=== PATIENT | female | born 1990 | race Caucasian/White ===

== ENCOUNTER → 2017-11-03 | Outpatient (CLI) | payer OTHER ==
[2017-11-03 18:19] LABS: BASO % 0.4 % (0.0-1.0); EOS # 0.1 10^3/uL (0.0-0.50); EOS % 2.7 % (0.0-3.0); IMMATURE GRANULOCYTE % 0.2 % (0-0); LYMPH # 2.4 10^3/uL (1.5-6.5); LYMPH % 45.3 % (24.0-44.0); MEAN CORPUSCULAR HEMOGLOBIN 28.5 pg (27.0-33.0); MEAN CORPUSCULAR HGB CONC 34.3 g/dl (32.0-36.5); MEAN CORPUSCULAR VOLUME 82.9 fl (80.0-96.0); MONO # 0.3 10^3/uL (0.0-0.8); MONO % 6.1 % (0.0-5.0); NEUTROPHILS # 2.4 10^3/uL (1.8-7.7); NEUTROPHILS % 45.3 % (36.0-66.0); PLATELET COUNT, AUTOMATED 226 10^3/uL (150-450); RED CELL DISTRIBUTION WIDTH 13.4 % (11.5-14.5); WHITE BLOOD COUNT 5.3 10^3/uL (4.0-10.0)
[2017-11-03 18:38] LABS: FREE T4 0.96 NG/DL (0.76-1.46)
== END ==
LOC: M WUC 15:36
PROVIDERS: ATTEND Nurse Practitioner Women's Health
DX: N76.1 Subacute and chronic vaginitis (principal)

== ENCOUNTER 2017-12-27 16:23 | Emergency (ER) | payer OTHER ==
[2017-12-27 18:28] LABS: BASO % 0.1 % (0.0-1.0); EOS % 0.3 % (0.0-3.0); HEMATOCRIT 37.5 % (36.0-47.0); HEMOGLOBIN 13.1 g/dl (12.0-16.0); IMMATURE GRANULOCYTE % 0.3 % (0-0); LYMPH # 0.5 10^3/uL (1.5-6.5); LYMPH % 7.3 % (24.0-44.0); MEAN CORPUSCULAR HEMOGLOBIN 28.7 pg (27.0-33.0); MEAN CORPUSCULAR HGB CONC 34.9 g/dl (32.0-36.5); MEAN CORPUSCULAR VOLUME 82.2 fl (80.0-96.0); MONO # 0.3 10^3/uL (0.0-0.8); NEUTROPHILS # 6.4 10^3/uL (1.8-7.7); PLATELET COUNT, AUTOMATED 266 10^3/uL (150-450); RED BLOOD COUNT 4.56 10^6/uL (4.00-5.40); RED CELL DISTRIBUTION WIDTH 13.4 % (11.5-14.5); WHITE BLOOD COUNT 7.3 10^3/uL (4.0-10.0)
[2017-12-27 18:36] LABS: KETONE, URINE AUTO RFX 1+ mg/dL (NEGATIVE); LEUKOCYTE ESTERASE UR AUTO RFX NEGATIVE (NEGATIVE); MUCUS, URINE RFX SMALL (NEGATIVE); NITRITE, URINE AUTO RFX NEGATIVE (NEGATIVE); RBC, URINE AUTO RFX 1 /HPF (0-3); SPECIFIC GRAVITY UR AUTO RFX 1.018 (1.002-1.035); SQUAM EPITHELIAL CELL UR AURFX 1 /HPF (0-6); WBC, URINE AUTO RFX 0 /HPF (0-3)
[2017-12-27 19:15] LABS: HCG, SERUM QUANTITATIVE 10594 MIU/ML
== END 2017-12-27 20:09 | disposition home or self-care (01) ==
LOC: M ED 16:23
DX: O99.89 Other specified diseases and conditions complicating pregnancy, childbirth and the puerperium (principal); R10.2 Pelvic and perineal pain; Z3A.01 Less than 8 weeks gestation of pregnancy
CPT/HCPCS: 76801

== ENCOUNTER → 2018-01-25 | Outpatient (CLI) | payer OTHER ==
[2018-01-25 17:48] LABS: BASO % 0.4 % (0.0-1.0); EOS # 0.2 10^3/uL (0.0-0.50); EOS % 1.8 % (0.0-3.0); HEMATOCRIT 33.6 % (36.0-47.0); HEMOGLOBIN 11.5 g/dl (12.0-16.0); IMMATURE GRANULOCYTE % 0.1 % (0-3.0); LYMPH # 2.9 10^3/uL (1.5-6.5); LYMPH % 35.3 % (24.0-44.0); MEAN CORPUSCULAR HEMOGLOBIN 28.1 pg (27.0-33.0); MEAN CORPUSCULAR HGB CONC 34.2 g/dl (32.0-36.5); MEAN CORPUSCULAR VOLUME 82.2 fl (80.0-96.0); MONO # 0.5 10^3/uL (0.0-0.8); MONO % 5.5 % (0.0-5.0); NEUTROPHILS # 4.6 10^3/uL (1.8-7.7); NEUTROPHILS % 56.9 % (36.0-66.0); PLATELET COUNT, AUTOMATED 268 10^3/uL (150-450); RED BLOOD COUNT 4.09 10^6/uL (4.00-5.40); RED CELL DISTRIBUTION WIDTH 13.9 % (11.5-14.5); WHITE BLOOD COUNT 8.1 10^3/uL (4.0-10.0)
[2018-01-25 20:04] LABS: CHLAMYDIA DNA AMPLIFICATION NEGATIVE (NEGATIVE); GC DNA AMPLIFICATION NEGATIVE (NEGATIVE)
[2018-01-28 11:58] LABS: RUBELLA IgG QUALITATIVE IMMUNE (IMMUNE)
[2018-01-28 12:08] LABS: HBsAg Prenatal NEGATIVE (NEGATIVE)
[2018-01-28 12:36] LABS: HIV 1&2 SCREEN CENTAUR NEGATIVE (NEGATIVE)
== END ==
LOC: M SMT 15:13
DX: Z36.9 Encounter for antenatal screening, unspecified (principal)
CPT/HCPCS: 86762

== ENCOUNTER → 2018-03-29 | Outpatient (CLI) | payer OTHER | LOC: M RAD 13:40 | DX: Z34.82 Encounter for supervision of other normal pregnancy, second trimester (principal); Z36.89 Encounter for other specified antenatal screening; Z3A.19 19 weeks gestation of pregnancy | CPT/HCPCS: 76811 ==

== ENCOUNTER → 2018-06-04 | Outpatient (CLI) | payer OTHER ==
[2018-06-04 13:26] LABS: BASO % 0.4 % (0.0-1.0); EOS # 0.1 10^3/uL (0.0-0.50); EOS % 1.4 % (0.0-3.0); HEMATOCRIT 33.3 % (36.0-47.0); HEMOGLOBIN 11.6 g/dl (12.0-15.5); IMMATURE GRANULOCYTE % 0.6 % (0-3.0); LYMPH # 1.9 10^3/uL (1.5-6.5); MEAN CORPUSCULAR HEMOGLOBIN 28.8 pg (27.0-33.0); MEAN CORPUSCULAR HGB CONC 34.8 g/dl (32.0-36.5); MEAN CORPUSCULAR VOLUME 82.6 fl (80.0-96.0); MONO # 0.5 10^3/uL (0.0-0.8); NEUTROPHILS # 5.5 10^3/uL (1.8-7.7); NEUTROPHILS % 67.6 % (36.0-66.0); PLATELET COUNT, AUTOMATED 321 10^3/uL (150-450); RED BLOOD COUNT 4.03 10^6/uL (4.00-5.40); RED CELL DISTRIBUTION WIDTH 13.3 % (11.5-14.5); WHITE BLOOD COUNT 8.1 10^3/uL (4.0-10.0)
[2018-06-04 13:32] LABS: GLUCOSE CHALLENGE TEST 1 HOUR 159 MG/DL (LESS THAN 140)
== END ==
LOC: M SMT 09:17
DX: Z34.90 Encounter for supervision of normal pregnancy, unspecified, unspecified trimester (principal)
CPT/HCPCS: 82950

== ENCOUNTER → 2018-06-05 | Outpatient (CLI) | payer OTHER ==
[2018-06-05 09:43] LABS: GLUCOSE, FASTING 70 MG/DL (LESS THAN 95)
[2018-06-05 10:29] LABS: 1 HR GLUCOSE 161 MG/DL (LESS THAN 180)
[2018-06-05 12:21] LABS: 2 HR GLUCOSE 142 MG/DL (LESS THAN 155)
[2018-06-05 13:25] LABS: 3 HR GLUCOSE 128 MG/DL (LESS THAN 140)
== END ==
LOC: M LAB 08:05
DX: Z34.93 Encounter for supervision of normal pregnancy, unspecified, third trimester (principal); Z3A.00 Weeks of gestation of pregnancy not specified
CPT/HCPCS: 82951

== ENCOUNTER → 2018-07-08 | Outpatient (REF) | payer OTHER | LOC: M LAB REF 17:19 | DX: R30.0 Dysuria (principal) ==

== ENCOUNTER → 2018-08-05 | Outpatient (REF) | payer OTHER | LOC: M LAB REF 13:02 | DX: Z34.83 Encounter for supervision of other normal pregnancy, third trimester (principal) ==

== ENCOUNTER 2018-08-19 05:13 | Inpatient (IN) | payer OTHER ==
[2018-08-19 06:39] LABS: HEMATOCRIT 35.5 % (36.0-47.0); HEMOGLOBIN 12.4 g/dl (12.0-15.5); MEAN CORPUSCULAR HGB CONC 34.9 g/dl (32.0-36.5); MEAN CORPUSCULAR VOLUME 80.1 fl (80.0-96.0); PLATELET COUNT, AUTOMATED 203 10^3/uL (150-450); RED BLOOD COUNT 4.43 10^6/uL (4.00-5.40); RED CELL DISTRIBUTION WIDTH 15.2 % (11.5-14.5)
[2018-08-19] MEDS ORDERED: FENTANYL 2MCG/ML ROPIVACAINE 0.2% IN 0.9% NACL 200ML IVBAG As Ordered (06:54)
[2018-08-19] MEDS: LACTATED RINGER'S 1000 ML IV ×2 (07:45→08:50)
[2018-08-19] MEDS ORDERED: ONDANSETRON 4MG/2ML VIAL (J2405) IV (08:00)
[2018-08-19] MEDS ORDERED: EPIDURAL/PCA KEYS XX (08:00)
[2018-08-19] MEDS ORDERED: EPIDURAL COMMENT XX (08:00)
[2018-08-19] MEDS ORDERED: diphenhydrAMINE INJ 50MG/ML VIAL (J1200) IV (08:00)
[2018-08-19] MEDS ORDERED: FENTANYL/ROPIVACAINE/NACL BAG 200 ML EPIDURAL (08:00)
[2018-08-19] MEDS ORDERED: REFRIGERATOR IV KEYS XX (08:00)
[2018-08-19] MEDS ORDERED: NALOXONE INJ 0.4 MG/1 ML VIAL (J2310) IV (08:00)
[2018-08-19] MEDS ORDERED: ePHEDrine SULFATE 25 MG/5 ML(5MG/ML) SYRINGE IV (08:00)
[2018-08-19] MEDS ORDERED: OXYTOCIN 30 UNITS IN 0.9% NaCl 500ML IV BAG (J2590) As Ordered (08:24)
[2018-08-19] MEDS: PRENATAL VITAMINS CHEWABLE TABLET PO (09:00)
[2018-08-19] MEDS: LR 1,000 ML IV (11:41)
[2018-08-19 12:41] LABS: CORD GAS ABE A -5.6; CORD GAS ABE V -4.9; CORD GAS HCO3 A 23.4 MEQ/L; CORD GAS HCO3 V 22.3 MEQ/L; CORD GAS O2 SAT A 45.2 %; CORD GAS PCO2 A 61.4 mmHg; CORD GAS PCO2 V 49.7 mmHg; CORD GAS PH A 7.199 UNITS; CORD GAS PO2 A 22.3 mmHg; CORD GAS PO2 V 20.6 mmHg; CORD GAS SBC A 18.8 MEQ/L; CORD GAS SBC V 19.4 MEQ/L; CORD GAS TCO2 A 25.3 MEQ/L; CORD GAS TCO2 V 23.8 MEQ/L
[2018-08-19] MEDS ORDERED: ANUSOL HC CREAM 30GM TOP (13:15)
[2018-08-19] MEDS ORDERED: METHYLERGONOVINE MALEATE 0.2 MG TAB PO (13:15)
[2018-08-19] MEDS ORDERED: RHOGAM 300 MCG (1500 IU) INJ (J2790) IM (13:15)
[2018-08-19] MEDS ORDERED: MEASLES,MUMPS,RUBELLA VACCINE INJ (MMR-II) (90707) SC (13:15)
[2018-08-19] MEDS ORDERED: DIBUCAINE 1% OINTMENT 30GM TOP (13:15)
[2018-08-19] MEDS: OXYTOCIN DRIP 30 UNITS in APPROPRIATE DILUENT 1 EA IV (13:31)
[2018-08-19] MEDS: IBUPROFEN 800 MG TAB PO ×2 (13:32→23:31)
[2018-08-19] MEDS: ACETAMINOPHEN 500 MG TAB PO (13:32)
[2018-08-19] MEDS: DOCUSATE SODIUM 100 MG CAP PO (23:31)
[2018-08-20] MEDS: PRENATAL VITAMINS CHEWABLE TABLET PO (08:39)
[2018-08-20] MEDS: DOCUSATE SODIUM 100 MG CAP PO (19:56)
[2018-08-20] MEDS: IBUPROFEN 800 MG TAB PO (19:56)
[2018-08-21] MEDS: PRENATAL VITAMINS CHEWABLE TABLET PO (09:12)
[2018-08-21] MEDS: INFLUENZA QUADRIVALENT PF VACCINE 0.5ML SYRINGE (90686) IM (09:14)
== END 2018-08-21 13:20 | disposition home or self-care (01) | DRG 775 ==
LOC: M LDO 05:13 → M LDI 06:11 → M OBS 14:25
PROVIDERS: Obstetrics & Gynecology
PROC: 10E0XZZ Delivery of Products of Conception, External Approach (ICD-10-PCS; principal; 2018-08-19)
PROC: 0KQM0ZZ Repair Perineum Muscle, Open Approach (ICD-10-PCS; 2018-08-19)
DX: O70.1 Second degree perineal laceration during delivery (principal); Z3A.39 39 weeks gestation of pregnancy; Z37.0 Single live birth

== ENCOUNTER → 2019-01-20 | Outpatient (CLI) | payer OTHER ==
[~2019-01-20] MED LIST: COLA100C5 PO; IBUP-1114 PO; MAPA500T2 PO; PRENTAB9 PO; ZANTTAB9 PO
[2019-01-20 17:27] LABS: FREE T4 0.95 NG/DL (0.76-1.46); THYROID STIMULATING HORMONE 1.53 uIU/ML (0.358-3.740)
== END ==
LOC: M SMT 14:25
PROVIDERS: ATTEND Advanced Practice Midwife
DX: Z12.4 Encounter for screening for malignant neoplasm of cervix (principal); N91.1 Secondary amenorrhea
CPT/HCPCS: 36415; 84439; 84443; G0123

== ENCOUNTER → 2019-04-29 | Outpatient (CLI) | payer OTHER ==
[2019-04-29 18:35] LABS: BASO % 0.6 % (0.0-1.0); EOS # 0.1 10^3/uL (0.0-0.50); EOS % 2.1 % (0.0-3.0); HEMATOCRIT 35.6 % (36.0-47.0); HEMOGLOBIN 12.1 g/dl (12.0-15.5); LYMPH # 3.2 10^3/uL (1.5-6.5); LYMPH % 48.3 % (24.0-44.0); MEAN CORPUSCULAR HEMOGLOBIN 27.2 pg (27.0-33.0); MONO # 0.5 10^3/uL (0.0-0.8); NEUTROPHILS # 2.8 10^3/uL (1.8-7.7); NEUTROPHILS % 41.8 % (36.0-66.0); PLATELET COUNT, AUTOMATED 335 10^3/uL (150-450); RED BLOOD COUNT 4.45 10^6/uL (4.00-5.40); WHITE BLOOD COUNT 6.6 10^3/uL (4.0-10.0)
[2019-04-29 18:41] LABS: ALT/SGPT 15 U/L (12-78); BILIRUBIN,TOTAL 0.3 MG/DL (0.2-1.0); BLOOD UREA NITROGEN 13 MG/DL (7-18); CALCIUM LEVEL 8.6 MG/DL (8.5-10.1); CARBON DIOXIDE LEVEL 27 MEQ/L (21-32); CHLORIDE LEVEL 108 MEQ/L (98-107); CREATININE FOR GFR 0.64 MG/DL (0.55-1.30); FERRITIN 24 NG/ML (8-252); FREE T4 1.05 NG/DL (0.76-1.46); GLOMERULAR FILTRATION RATE > 60.0 (>60); GLUCOSE, FASTING 80 MG/DL (70-100); IRON (FE) 74 UG/DL (50-170); PERCENT SATURATION 24.2 % (13.2-45.0); POTASSIUM SERUM 4.2 MEQ/L (3.5-5.1); SODIUM LEVEL 141 MEQ/L (136-145); TOTAL IRON BINDING CAPACITY 306 UG/DL (250-450); TOTAL PROTEIN 7.5 GM/DL (6.4-8.2)
[2019-04-29 18:44] LABS: TOTAL 25(OH) VITAMIN D 26.1 NG/ML (30.0-100.0)
== END ==
LOC: M SMT 14:56
PROVIDERS: ATTEND Physician Assistant
DX: R53.83 Other fatigue (principal)